=== PATIENT | female | born 1975 | race Caucasian/White ===

== ENCOUNTER 2018-12-30 15:50 | Emergency (ER) | payer BC, MEDICAID ==
[2018-12-30] MEDS ORDERED: Sodium Chloride 0.9% 10 ML Syringe FLUSH PRN (16:18)
--- NOTE | 2018-12-30 16:47 | EDM.PDOC ---
<Arielle Norman - Last Filed: 12/30/18 17:52> ED HPI GENERAL MEDICAL PROBLEM - General Chief Complaint: Chest Pain Stated Complaint: CHEST PAIN, NECK/SHOULDERS PROBLEMS [id number] Time Seen by Provider: 12/30/18 16:41 Source of Information: Reports: Patient History Limitations: Reports: No Limitations - History of Present Illness INITIAL COMMENTS - FREE TEXT/NARRATIVE: Patient is a 43 year old female presenting with chest tightness and pain radiating to her jaw and right voodoo. She states she started feeling chest pressure and tightness around 10:30am that continued to get worse. She took ibuprofen for menstrual cramps with no relief of her chest tightness. She reports associated intermittent blurry vision, jaw pain, ear pain, and right temporal pain. She is sensitive to light and sound. She does have a significant history of migraines and states this feels different. Also smokes cigarettes and noted that after smoking at noon her symptoms got worse. Denies fever, chills, weakness, loss of consciousness, abdominal pain, changes in bowel or bladder habits. Left Chest Pain Score (Numeric/FACES): 6 Headache Pain Score (Numeric/FACES): 5 - Related Data Allergies Allergy/AdvReac Type Severity Reaction Status Date / Time bee venom protein (honey bee) Allergy Swelling Verified 12/30/18 16:02 ceftriaxone [From Rocephin] Allergy Rash Verified 12/30/18 16:02 erythromycin base Allergy Facial Verified 12/30/18 16:02 Swelling Home Meds: Home Meds Cholecalciferol (Vitamin D3) [Vitamin D3] 1,000 unit PO DAILY 12/30/18 [History] Melatonin 10 mg PO QPM 12/30/18 [History] Past Medical History - Past Surgical History Musculoskeletal Surgical History: Reports: Other (See Below) Other Musculoskeletal Surgeries/Procedures:: neck and back surgery Social & Family History - Tobacco Use Smoking Status *Q: Current Every Day Smoker Years of Tobacco use: 16 Packs/Tins Daily: 0.1 Second Hand Smoke Exposure: Yes - Recreational Drug Use Recreational Drug Use: No ED ROS GENERAL - Review of Systems Review Of Systems: ROS reveals no pertinent complaints other than HPI. ED EXAM, GENERAL - Physical Exam Exam: See Below Exam Limited By: No Limitations General Appearance: Alert, Moderate Distress Eye Exam: Bilateral Eye: EOMI, PERRL Ears: Normal External Exam Nose: Normal Inspection Throat/Mouth: Normal Inspection, Normal Oropharynx, Normal Voice. No: Dysphagia Head: Atraumatic, Normocephalic Neck: Normal Inspection, Supple, Non-Tender, Full Range of Motion. No: Carotid Bruit Respiratory/Chest: No Respiratory Distress, Lungs Clear, Normal Breath Sounds, Chest Non-Tender Cardiovascular: Normal Peripheral Pulses, Regular Rate, Rhythm, No Edema, No JVD , No Murmur Peripheral Pulses: 3+: Posterior Tibial (L), Posterior Tibial (R), Dorsalis Pedis (L), Dorsalis Pedis (R) GI/Abdominal: Normal Bowel Sounds, Soft, Non-Tender Extremities: Normal Inspection, No Pedal Edema Neurological: Alert, Oriented, CN II-XII Intact Skin Exam: Warm, Dry, Intact EKG INTERPRETATION EKG Date: 12/30/18 Time: 16:15 Rhythm: NSR Rate (Beats/Min): 78 [place]: Normal P-Wave: Present QRS: Normal ST-T: Normal QT: Normal Comparison: NA - No Prior EKG EKG Interpretation Comments: 1. One PVC episode. 2. Normal EKG. Course - Vital Signs Last Recorded V/S: Last Vital Signs Temp 37.1 C 12/30/18 15:55 Pulse 85 12/30/18 15:55 Resp 18 12/30/18 15:55 BP 130/75 12/30/18 15:55 Pulse Ox 99 12/30/18 15:55 - Orders/Labs/Meds Orders: Active Orders 24 hr Category Date Time Status EKG 12 Lead [EKG Documentation Completion] [RC] STAT Care 12/30/18 17:14 Active Peripheral IV Care [RC] . DIRECTED Care 12/30/18 16:18 Active Sodium Chloride 0.9% [Saline Flush] Med 12/30/18 16:18 Active 10 ml FLUSH ASDIRECTED PRN Peripheral IV Insertion Adult [OM.PC] Routine Oth 12/30/18 16:18 Ordered Medication Orders Sodium Chloride (Saline Flush) 10 ml FLUSH ASDIRECTED PRN PRN Reason: Keep Vein Open Last Admin: 12/30/18 16:33 Dose: 10 ml Labs: Laboratory Tests 12/30/18 12/30/18 Range/Units 16:35 16:35 WBC 11.5 H (5.0-10.0) 10^3/uL RBC 4.43 (4.2-5.4) 10^6/uL Hgb 14.3 (12.0-16.0) g/dL Hct 42.3 (37.0-47.0) % MCV 95.5 (80-100) fL MCH 32.3 (27.0-34.0) pg MCHC 33.8 (33.0-35.0) g/dL Plt Count 392 (150-450) 10^3/uL Neut % (Auto) 53.7 (42.2-75.2) % Lymph % (Auto) 36.4 (20.5-50.1) % [place] % (Auto) 6.8 (2-8) % Eos % (Auto) 2.6 (1.0-3.0) % Baso % (Auto) 0.5 (0.0-1.0) % Sodium 138 (135-145) mmol/L Potassium 3.6 (3.6-5.0) mmol/L Chloride 108 (101-111) mmol/L Carbon Dioxide 20.0 L (21.0-31.0) mmol/L Anion Gap 13.6 BUN 10 (7-18) mg/dL Creatinine 1.4 H (0.6-1.3) mg/dL Est Cr Clr Drug Dosing TNP Estimated GFR (MDRD) 41 BUN/Creatinine Ratio 7.14 Glucose 96 (74-105) mg/dL Calcium 8.6 (8.4-10.2) mg/dl Total Bilirubin 0.5 (0.2-1.0) mg/dL AST 18 (10-42) IU/L ALT 13 (10-60) IU/L Alkaline Phosphatase 54 (42-121) IU/L Troponin I 0.00 (0.00-0.08) ng/mL Total Protein 6.8 (6.7-8.2) g/dl Albumin 3.9 (3.2-5.5) g/dl Globulin 2.9 Albumin/Globulin Ratio 1.34 Meds: Medications Generic Name Dose Route Start Last Admin Trade Name Freq PRN Reason Stop Dose Admin Sodium Chloride 10 ml 12/30/18 16:18 12/30/18 16:33 Saline Flush FLUSH 10 ml ASDIRECTED PRN Administration Keep Vein Open Departure - Departure Time of Disposition: 17:47 Disposition: Home, Self-Care 01 Condition: Good Clinical Impression: Anxiety Chest pain Qualifiers: Chest pain type: unspecified Qualified Code(s): R07.9 - Chest pain, unspecified Migraine Qualifiers: Migraine type: unspecified Status migrainosus presence: without status migrainosus Intractability: not intractable Qualified Code(s): G43.909 - Migraine, unspecified, not intractable, without status migrainosus Instructions: Migraine Headache, [id number], Recurrent Migraine Headache, Panic Attack, [id number], Nonspecific Chest Pain, [id number], Migraine Headache Forms: ED Department Discharge Care Plan Goals: 1. Reglan 10mg PO four times daily as needed for migraine or nausea. Take with OTC Benadryl and ibuprofen for migraine relief. 2. Follow-up in clinic if migraine symptoms persist. If concerning symptoms of severe chest pain, shortness of breath, sudden change in vision or abrupt weakness occurs seek emergent medical attention. - My Orders Last 24 Hours: My Active Orders 12/30/18 16:18 Peripheral IV Care [RC] . DIRECTED Sodium Chloride 0.9% [Saline Flush] 10 ml FLUSH ASDIRECTED PRN Peripheral IV Insertion Adult [OM.PC] Routine 12/30/18 17:14 EKG 12 Lead [EKG Documentation Completion] [RC] STAT - Assessment/Plan Last 24 Hours: My Active Orders 12/30/18 16:18 Peripheral IV Care [RC] . DIRECTED Sodium Chloride 0.9% [Saline Flush] 10 ml FLUSH ASDIRECTED PRN Peripheral IV Insertion Adult [OM.PC] Routine 12/30/18 17:14 EKG 12 Lead [EKG Documentation Completion] [RC] STAT Plan: 1. CBC, CMP, Troponin I, EKG, Chest X-ray obtained. -Slightly elevated Creatinine, all other labs within normal limits. No concern at this time. <Edwin Oliver - Last Filed: 12/30/18 18:06> Course - Re-Assessments/Exams Free Text/Narrative Re-Assessment/Exam: 12/30/18 18:06 I personally performed or re-performed the physical examination and medical decision making. I have verified all student documentation or findings, including history, physical exam and/or medical decision making.
[2018-12-30 17:05] LABS: ANION GAP 13.6; CHLORIDE,CL 108 mmol/L (101-111); SODIUM,NA 138 mmol/L (135-145)
--- NOTE | 2018-12-30 17:44 | CR ---
Clinical history: 43-year-old female chest pain. Interpretation: Upright PA/lateral chest films confirm lower cervical spinal fusion. Mild dorsolumbar scoliosis. *No acute cardiopulmonary abnormality. Normal cardiac silhouette and bony thorax. No alveolar edema, dependent effusion, lung mass, hilar lymphadenopathy or focal lobar pneumonia. No atelectasis/collapse. No pneumothorax.
== END 2018-12-30 18:06 | disposition home or self-care (01) ==
LOC: DL.ED 15:50
DX: F41.9 Anxiety disorder, unspecified (principal); G43.909 Migraine, unspecified, not intractable, without status migrainosus; F17.210 Nicotine dependence, cigarettes, uncomplicated; Z79.899 Other long term (current) drug therapy; Z88.1 Allergy status to other antibiotic agents; Z91.030 Bee allergy status
CPT/HCPCS: 36415; 71046; 80053; 84484; 85025; 93005; 99285-25

== ENCOUNTER 2020-05-26 06:21 | Day surgery (SDC) | payer MEDICAID ==
[2020-05-26] MEDS ORDERED: Midazolam 1 MG/ML 2 ML SDV IV ONE ×3 (06:22→06:59)
[2020-05-26] MEDS ORDERED: fentaNYL 100 MCG/2 ML SDV IV ONE ×3 (06:22→06:58)
[2020-05-26] MEDS ORDERED: fentaNYL 100 MCG/2 ML SDV ONE (06:33)
[2020-05-26] MEDS ORDERED: Midazolam 1 MG/ML 2 ML SDV ONE (06:33)
[2020-05-26] MEDS ORDERED: Dextrose 5%-0.45% NaCl 1,000 ML IV SCH (06:45)
--- NOTE | 2020-05-26 07:51 | OR ---
DATE: 05/26/2020 PROCEDURE: Esophagogastroduodenoscopy and multiple pinch biopsies. INSTRUMENT USED: [id number]-HQ190 Olympus video panendoscope. PREMEDICATIONS: No oral or topical anesthesia used. Fentanyl 100 mcg intravenous, Versed 2 mg intravenous. The procedure was done under pulse oximetry, BP recording, and cardiac monitoring. INDICATION: The patient with persistent upper abdominal pain and diarrhea, unexplained and not responsive to medical measures. Esophagogastroduodenoscopy is performed for detection of any active erosive lesions, [place] esophagus and/or malignancy also under consideration, H pylori status to be determined, small bowel biopsies to be obtained for celiac disease, endoscopic hemostasis therapy if needed. DESCRIPTION OF PROCEDURE: The scope was passed with ease. Adequate visualization of the esophagus was made from proximal to distal areas. No upper esophageal lesions identified. No distal esophageal stricture. No uphill or downhill esophageal varices. No Adelaida-Garay tear. No evidence of erosive esophagitis by Wheeler criteria. No esophageal polyp or tumor mass identified. Z-line was seen at around 40 cm distal to the oral verge, configuration consistent with grade 1 by ZAP classification. No proximal gastric varices noted. Gastric fundus examination by retroflexion showed no polypoid lesions. No gastric ulcer, malignant mass, or vascular ectasia identified. Duodenal bulb showed no ulcer. Visualized second part of the duodenum was unremarkable. Multiple pinch biopsies, 4 in number were taken from different areas of the second part of the duodenum and tissues were also obtained from the duodenal bulb at 9 and 12 o'clock positions and sent for any histopathologic evidence of celiac disease. Multiple pinch biopsies were also taken from the gastric antrum and proximal body and sent for PyloriTek test for H pylori and histopathology. No bleeding was noted from any of the visualized areas at the completion of the examination. Photographs were taken of the duodenal bulb, gastric antrum, fundus, and distal esophagus. IMPRESSION: Normal study. The patient tolerated procedure well. [facility] /[id number]
--- NOTE | 2020-05-26 08:41 | LETTER ---
05/26/2020 RE: GINA COLMENARES : 1975 [place] [address]za [address] [address] Dear Ms. Stallworth: Ms. Gina Colmenares had esophagogastroduodenoscopy done this morning and she tolerated the procedure well. I herewith send a copy of the endoscopy note and photographs for your review. Thank you. Sincerely, [facility] /[id number]
== END 2020-05-26 09:05 | disposition home or self-care (01) ==
LOC: DL.ENDO 06:21
PROVIDERS: ATTEND Internal Medicine Gastroenterology
DX: R10.10 Upper abdominal pain, unspecified (principal); R19.7 Diarrhea, unspecified; Z88.1 Allergy status to other antibiotic agents; Z88.8 Allergy status to other drugs, medicaments and biological substances; F17.210 Nicotine dependence, cigarettes, uncomplicated; E66.09 Other obesity due to excess calories; F32.9 Major depressive disorder, single episode, unspecified; Z98.890 Other specified postprocedural states; Z87.19 Personal history of other diseases of the digestive system; Z87.448 Personal history of other diseases of urinary system; Z98.51 Tubal ligation status; Z90.79 Acquired absence of other genital organ(s); Z68.29 Body mass index [BMI] 29.0-29.9, adult
CPT/HCPCS: 43239; 87077; J2250; J3010; J7042

== ENCOUNTER 2020-05-27 15:20 | Emergency (ER) | payer MEDICAID ==
--- NOTE | 2020-05-27 16:02 | EDM.PDOC ---
<Aroldo Nixon - Last Filed: 05/27/20 16:17> ED HPI GENERAL MEDICAL PROBLEM - General Chief Complaint: Genitourinary Problem Stated Complaint: blood in the urine Time Seen by Provider: 05/27/20 15:40 Source of Information: Reports: Patient History Limitations: Reports: No Limitations - History of Present Illness INITIAL COMMENTS - FREE TEXT/NARRATIVE: Patient is a 44 y/o female who presents to the ED complaining of blood in the urine. Onset of this problem was yesterday. She notes red colored urine without clots. Since then the urine has lightened, now is pink tinged. Patient does report some increased urinary urgency, denies any pain or burning with urination. She has had a left sided back ache which started yesterday, but notes that she suffers from chronic pain so it is difficult to differentiate this pain from her usual pain complaints. She denies any vaginal bleeding. LMP was 05/16. She states that her cycle is irregular, but periods are usually heavy and associated with cramping. Patient underwent upper endoscopy yesterday. She tolerated the procedure well. Endoscopy was normal. She is being worked up for chronic diarrhea and associated weight loss. She reports today however she is currently battling constipation and weight gain secondary to being put on Prednisone for her diarrhea. She has colonoscopy scheduled for Friday. She contacted her physician today with this problem who advised that she come to the ED to rule out infection. Bilateral Back Pain Score (Numeric/FACES): 2 - Related Data Allergies Allergy/AdvReac Type Severity Reaction Status Date / Time bee venom protein (honey bee) Allergy Swelling Verified 05/26/20 09:24 ceftriaxone [From Rocephin] Allergy Rash Verified 05/26/20 09:24 erythromycin base Allergy Facial Verified 05/26/20 09:24 Swelling Home Meds: Home Meds Cholecalciferol (Vitamin D3) [Vitamin D3] 1,000 unit PO DAILY 05/25/20 [History] Cyclobenzaprine [Flexeril] 10 mg PO TID 05/25/20 [History] Docusate Calcium [Stool Softener] 240 mg PO BEDTIME 05/25/20 [History] EPINEPHrine [Epipen] 0.3 mg IM ASDIRECTED 05/25/20 [History] Ibuprofen [Advil] 200 - 800 mg PO Q6H PRN 05/25/20 [History] Loratadine [Claritin] 10 mg PO DAILY 05/25/20 [History] Omeprazole Magnesium 20 mg PO BEDTIME 05/25/20 [History] Sertraline [Zoloft] 50 mg PO DAILY 05/25/20 [History] diphenhydrAMINE [Benadryl] 25 mg PO Q6H PRN 05/25/20 [History] traMADol [Ultram] 50 - 100 mg PO Q8H PRN 05/25/20 [History] Past Medical History HEENT History: Reports: None Cardiovascular History: Reports: None Respiratory History: Reports: None Gastrointestinal History: Reports: GERD, Helicobacter Pylori, Irritable Bowel Syndrome Genitourinary History: Reports: None 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: Musculoskeletal History: Reports: Back Pain, Chronic Neurological History: Reports: Headaches, Chronic, Seizure Psychiatric History: Reports: Anxiety, Depression Endocrine/Metabolic History: Reports: Vitamin D Deficiency Hematologic History: Reports: None Immunologic History: Reports: None Oncologic (Cancer) History: Reports: Basal Cell Carcinoma Dermatologic History: Reports: Other (See Below) Other Dermatologic History: HX OF INTERSTITIAL CYSTITIS - Infectious Disease History Infectious Disease History: Reports: Chicken Pox - Past Surgical History GI Surgical History: Reports: Colonoscopy Dermatological Surgical History: Social & Family History - Caffeine Use Caffeine Use: Reports: Coffee, Soda Other Caffeine Use: COFFEE, DIET COKE Caffeine Use Comment: DAILY AVERAGE OF 12 BEVERAGES ED ROS GENERAL - Review of Systems Review Of Systems: See Below Constitutional: Denies: Fever, Chills, Weakness, Fatigue HEENT: Reports: No Symptoms Respiratory: Reports: No Symptoms Cardiovascular: Reports: No Symptoms Endocrine: Reports: No Symptoms GI/Abdominal: Reports: Constipation. Denies: Abdominal Pain, Bloody Stool, Nausea, Vomiting : Reports: Flank Pain, Hematuria, Urgency. Denies: Discharge, Dysuria, Pain Musculoskeletal: Reports: Shoulder Pain, Back Pain Skin: Denies: Rash Neurological: Reports: No Symptoms Hematologic/Lymphatic: Reports: Easy Bruising. Denies: Easy Bleeding ED EXAM, RENAL/ - Physical Exam Exam: See Below Exam Limited By: No Limitations General Appearance: Alert, WD/WN, No Apparent Distress Head: Atraumatic, Normocephalic Neck: Normal Inspection, Supple, Non-Tender. No: Lymphadenopathy (L), Lymphadenopathy (R) Respiratory/Chest: No Respiratory Distress, Lungs Clear, Normal Breath Sounds, No Accessory Muscle Use, Chest Non-Tender Cardiovascular: Normal Peripheral Pulses, Regular Rate, Rhythm, No Edema, No Gallop, No JVD, No Murmur, No Rub GI/Abdominal: Normal Bowel Sounds, Soft, Non-Tender, No Organomegaly, No Distention, No Mass Back Exam: Normal Inspection, Full Range of Motion, Paraspinal Tenderness. No: CVA Tenderness (L), CVA Tenderness (R) Extremities: Normal Inspection, Non-Tender, No Pedal Edema Neurological: Alert, Oriented, Normal Cognition, No Motor/Sensory Deficits Psychiatric: Normal Affect, Normal Mood Skin Exam: Warm, Dry Course - Re-Assessments/Exams Free Text/Narrative Re-Assessment/Exam: 05/27/20 16:50 Patient re-evaluated following results of urinalysis. Presence of hematuria confirmed on UA without any evidence of infection present. Reassured patient regarding lack of signs of infection. Give hemodynamic stability and signs of self resolution, recommended outpatient follow up. Patient is in favor of this plan. Departure - Departure Time of Disposition: 16:49 Disposition: Home, Self-Care 01 Condition: Good Clinical Impression: Hematuria Qualifiers: Hematuria type: gross Qualified Code(s): R31.0 - Gross hematuria - Discharge Information *PRESCRIPTION DRUG MONITORING PROGRAM REVIEWED*: Not Applicable *COPY OF PRESCRIPTION DRUG MONITORING REPORT IN PATIENT ALISHA: Not Applicable Instructions: Hematuria, Adult Referrals: Niesha Stallworth NP [Primary Care Provider] - Forms: ED Department Discharge Additional Instructions: Follow up with primary provider as scheduled for further workup. Maintain good hydration and monitor symptoms. If you develop fever, severe back pain, or other signs of illness contact the ED or return to be re-evaluated. Sepsis Event Note (ED) - Evaluation Sepsis Screening Result: No Definite Risk - Assessment/Plan Assessment:: Painless hematuria of unknown origin. Urinalysis negative for infection. Patient is hemodynamically stable. Plan: Hematuria is showing signs of resolution since onset. Given absence of pain and infection there does not necessitate any further urgent or emergent workup for this problem. Recommend outpatient followup. Patient has an appointment scheduled with her primary provider in three days to address this problem. Patient voices agreement with this plan. <Edwin Oliver - Last Filed: 05/27/20 17:13> Course - Vital Signs Last Recorded V/S: Last Vital Signs Temp 98.5 F 05/27/20 15:41 Pulse 92 05/27/20 15:41 Resp 18 05/27/20 15:41 BP 99/45 L 05/27/20 15:41 Pulse Ox 97 05/27/20 15:41 - Orders/Labs/Meds Orders: Active Orders 24 hr Category Date Time Status CULTURE URINE [RM] Stat Lab 05/27/20 15:26 Received Labs: Laboratory Tests 05/27/20 Range/Units 15:26 Urine Color Yellow (YELLOW) Urine Appearance Slightly cloudy (CLEAR) Urine pH 6.0 (5.0-9.0) Ur Specific [place] 1.010 (1.005-1.030) Urine Protein Negative (NEGATIVE) Urine Glucose (UA) Negative (NEGATIVE) Urine Ketones Negative (NEGATIVE) Urine Occult Blood Large H (NEGATIVE) Urine Nitrite Negative (NEGATIVE) Urine Bilirubin Negative (NEGATIVE) Urine Urobilinogen 0.2 (0.2-1.0) mg/dL Ur Leukocyte Esterase Trace H (NEGATIVE) Urine RBC 50-75 H /HPF Urine WBC 0-5 (0-5/HPF) /HPF Ur Epithelial Cells Few (NOT SEEN) /HPF Amorphous Sediment Few (NOT SEEN) /HPF Urine Bacteria Few (0-FEW/HPF) /HPF Urine Mucus Rare (NOT SEEN) /LPF - Re-Assessments/Exams Free Text/Narrative Re-Assessment/Exam: 05/27/20 17:13 I saw and evaluated the patient. Discussed with resident and agree with residents findings and plan as documented in the residents note. Sepsis Event Note (ED) - Focused Exam Vital Signs: Vital Signs Temp Pulse Resp BP Pulse Ox 05/27/20 15:41 98.5 F 92 18 99/45 L 97
== END 2020-05-27 17:05 | disposition home or self-care (01) ==
LOC: DL.ED 15:20
DX: R31.0 Gross hematuria (principal); K21.9 Gastro-esophageal reflux disease without esophagitis; F41.9 Anxiety disorder, unspecified; F32.9 Major depressive disorder, single episode, unspecified; Z91.030 Bee allergy status; Z88.1 Allergy status to other antibiotic agents; Z79.899 Other long term (current) drug therapy
CPT/HCPCS: 81001; 87086; 99283

== ENCOUNTER 2020-05-29 05:19 | Day surgery (SDC) | payer MEDICAID ==
[2020-05-29] MEDS ORDERED: fentaNYL 100 MCG/2 ML SDV IV ONE ×5 (05:20→06:47)
[2020-05-29] MEDS ORDERED: Midazolam 1 MG/ML 2 ML SDV IV ONE ×7 (05:20→06:44)
[2020-05-29] MEDS ORDERED: Dextrose 5%-0.45% NaCl 1,000 ML IV SCH (06:15)
[2020-05-29] MEDS ORDERED: Midazolam 1 MG/ML 2 ML SDV ONE (06:17)
[2020-05-29] MEDS ORDERED: fentaNYL 100 MCG/2 ML SDV ONE (06:17)
--- NOTE | 2020-05-29 14:57 | OR ---
DATE: 05/29/2020 PROCEDURE: Total colonoscopy, terminal ileoscopy, and multiple pinch biopsies. INSTRUMENT USED: [id number]-[id number] Olympus video colonoscope. PREMEDICATIONS: Fentanyl 150 mcg intravenous, Versed 4 mg intravenous. Nasal O2 cannula. The procedure was done under pulse oximetry, BP recording, and engine monitor. INDICATION: The patient with chronic diarrhea, abdominal pain, unexplained and not responsive to medical measures. Colonoscopic examination is done for detection of any polypoid lesions and removal, biopsies to be obtained for microscopic colitis, endoscopic hemostasis therapy if needed. DESCRIPTION OF PROCEDURE: Initial rectal exam was unremarkable. Rigid anoscopy was normal. The colonoscope was passed with ease up to and beyond the ileocecal junction to visualize normal-appearing terminal ileum. Photographs were taken of the terminal ileum and normal-appearing cecum. No bleeding was noted from any of the visualized areas at the commencement of the examination. Bowel preparation was found to be adequate, [place] scale 2 in all the regions, total score 6. Multiple pinch biopsies were obtained from the normal-appearing terminal ileum and sent for histopathology. No stricture. No vascular ectasia. No large isolated ulcerations seen. No evidence of diffuse inflammatory bowel disease in the form of friability, contact bleeding, or ulcerations. No polyp or tumor mass identified. Probing the proximal sides of folds and flexures using adequate distention and clearing up the stool material, withdrawal of the scope was made. Multiple pinch biopsies were taken from the normal-appearing mucosa of the mid transverse colon, mid descending colon, and rectosigmoid, and sent for any histopathologic evidence of microscopic colitis. No bleeding was noted from any of the visualized areas at the completion of examination. IMPRESSION: Normal study. The patient tolerated the procedure well. [facility] /[id number]
--- NOTE | 2020-05-29 15:52 | LETTER ---
05/29/2020 RE: GARFIELD COLMENARES : 1975 Niesha Stallworth, RUTHIE [address] [address] Dear Ms. Stallworth: Ms. Garfield Colmenares had colonoscopic examination done this morning and she tolerated the procedure well. I herewith send a copy of the endoscopy note and photographs for your review. Thank you. Sincerely. [facility] /[id number]
== END 2020-05-29 09:00 | disposition home or self-care (01) ==
LOC: DL.ENDO 05:19
PROVIDERS: ATTEND Internal Medicine Gastroenterology
DX: K52.9 Noninfective gastroenteritis and colitis, unspecified (principal); K63.89 Other specified diseases of intestine; E66.09 Other obesity due to excess calories; F32.9 Major depressive disorder, single episode, unspecified; Z88.1 Allergy status to other antibiotic agents; Z88.8 Allergy status to other drugs, medicaments and biological substances; Z98.890 Other specified postprocedural states; Z68.29 Body mass index [BMI] 29.0-29.9, adult
CPT/HCPCS: 45380; J2250; J3010; J7042

== ENCOUNTER 2022-10-28 06:28 | Day surgery (SDC) | payer MEDICAID ==
[~2022-10-28 06:28] MED LIST: Midazolam 1 MG/ML 2 ML SDV ONE; fentaNYL 100 MCG/2 ML SDV ONE
[2022-10-28] MEDS ORDERED: Midazolam 1 MG/ML 2 ML SDV IV ONE ×7 (06:29→07:47)
[2022-10-28] MEDS ORDERED: fentaNYL 100 MCG/2 ML SDV IV ONE ×6 (06:29→07:52)
[2022-10-28] MEDS ORDERED: Dextrose 5%-0.45% NaCl 1,000 ML IV SCH (06:45)
== END 2022-10-28 09:30 | disposition home or self-care (01) ==
LOC: DL.ENDO 06:28
PROVIDERS: ATTEND Internal Medicine Gastroenterology
DX: K52.831 Collagenous colitis (principal); F32.A Depression, unspecified; K21.9 Gastro-esophageal reflux disease without esophagitis; Z88.1 Allergy status to other antibiotic agents; Z91.030 Bee allergy status; Z98.890 Other specified postprocedural states
CPT/HCPCS: 45380; J2250; J3010; J7042